=== PATIENT | female | born 1955 | race Two or more races ===

== ENCOUNTER 2019-02-04 23:41 | Emergency (ER) | payer OTHER ==
[~2019-02-04] VITALS: Ht 157.5 cm; Wt 71.0 kg
[2019-02-04] MEDS ORDERED: LISI-660 PO (23:55)
[2019-02-04] MEDS ORDERED: METF-960 PO (23:55)
[2019-02-04] MEDS ORDERED: GABA-531 PO (23:57)
[2019-02-05 00:23] LABS: GLUCOSE,POINT OF CARE 148 MG/DL (70-110)
[2019-02-05] MEDS ORDERED: LORazepam 1 MG TABLET PO ONE (01:15)
[2019-02-05 01:16] VITALS: BP 136/78
== END 2019-02-05 01:26 | disposition home or self-care (01) ==
LOC: EMS 23:41
DX: F41.9 Anxiety disorder, unspecified (principal); E11.9 Type 2 diabetes mellitus without complications; E78.00 Pure hypercholesterolemia, unspecified; I11.9 Hypertensive heart disease without heart failure; Z79.899 Other long term (current) drug therapy